=== PATIENT | male | born 1965 | race Caucasian/White ===

== ENCOUNTER 2021-02-03 14:20 | Emergency (ER) | payer OTHER, SELFPAY ==
[2021-02-03 14:40] VITALS: BP 131/91; PULSE 100; RESP 20; TEMP 36.1; O2SAT 100
--- NOTE | 2021-02-03 15:12 | ED.GENADULT ---
HPI - General Adult General Chief complaint: Extremity Injury, Upper Stated complaint: left hand thumb injury Source: patient Mode of arrival: ambulatory Limitations: no limitations History of Present Illness HPI narrative: Navin is a 55M with a PMH of recurrent boils, diabetes and a mood disorder presented to the ED with pain and swelling in the left first digit. It has been getting worse over the last week. He denies any trauma or burn to the area. He has no other concerns. He has normal strength and sensation in the finger. Related Data Allergies Allergy/AdvReac Type Severity Reaction Status Date / Time No Known Allergies Allergy Verified 02/03/21 15:33 Review of Systems Constitutional: Constitutional: Reports no additional constitutional complaints, Denies chills and Denies fever(s) Eyes: Eyes: Reports no additional eye complaints ENT: Reports system reviewed and no additional complaints, except as documented Cardiovascular: Cardiovascular: Reports no additional cardiovascular complaints Respiratory: Respiratory: Reports no additional respiratory complaints Gastrointestinal: Gastrointestinal: Reports no additional gastrointestinal complaints Genitourinary: Genitourinary: Reports no additional male genitourinary complaints Musculoskeletal: Musculoskeletal: Reports no additional musculoskeletal complaints Integumentary/Breasts: Skin/Breast: Reports as per HPI Neurologic: Reports system reviewed and no additional complaints, except as documented Psychiatric: Psychiatric: Reports no additional psychiatric complaints Endocrine: Endocrine: Reports no additional endocrine complaints Hematologic/Lymphatic: Hematologic/Lymphatic: Reports no additional hematologic/lymphatic complaints Allergic/Immunologic: Allergic/Immunologic: Reports no additional allergic/immunologic complaints [facility] Social History Social History Gender identity (if verbalized by the patient): Male Exam Const: General: no acute distress and alert Orientation/consciousness: patient oriented x3 Limitations: No altered mental status HENMT: Head: normal to inspection Eyes: Conjunctivae: conjunctivae normal Pupils: Equal, round and reactive pupils present Neck: Neck: normal visual inspection Chest: Chest palpation & inspection: normal inspection of the chest Resp: Effort & Inspection: normal respiratory effort Other: no cough Cardio: Rate: regular rate Skin: Other: Left first digit was swollen erythematous and purple, fluctuant and very TTP Neuro: General: patient oriented x3 and moves all extremities Extrem: General: normal to inspection Psych: Appearance: grossly normal Mental Status: mental status grossly normal Procedures Abscess I/D Left thumb: Date of Incision: 02/03/21 Side (if applicable): left Local Anesthetic: none (4cc of 1% lidocaine digital block) Amount of anesthesia used (mL): 4 Technique: incised with #11 blade Amount of fluid expressed (mL): 1 Irrigation: No Packing used?: none I&D Results: Pus and Blood Abcess I&D Additional Comments: Tolerated the procedure well. Discharge Plan Discharge Clinical Impression: Felon of finger of right hand Patient Disposition: Home, Self-Care Condition: Stable Instructions: Antibiotic Form Additional Instructions: Please return to the emergency department for any new, concerning, or worsening symptoms. Prescriptions: New hydrocodone-acetaminophen 5-325 mg tablet 1 tablet PO Q8H PRN (Reason: pain) Qty: 15 RF: 0 sulfamethoxazole-trimethoprim [Bactrim DS] 800-160 mg tablet 1 tablet PO Q12H Qty: 10 RF: 0 Follow-up/Referrals: UNKNOWN,DOCTOR [Primary Care Provider] -
[2021-02-03 15:33] VITALS: BP 128/88; PULSE 90; RESP 20; TEMP 36.6; O2SAT 99
== END 2021-02-03 15:34 | disposition home or self-care (01) ==
PROVIDERS: Emergency Provider Family Medicine
DX: L03.012 Cellulitis of left finger (principal)
CPT/HCPCS: 26010; 99283

== ENCOUNTER 2021-05-22 15:15 | Emergency (ER) | payer OTHER, SELFPAY ==
[2021-05-22 15:30] VITALS: BP 136/77; PULSE 107; RESP 22; TEMP 37.3; O2SAT 98
[2021-05-22 15:45] LABS: Glucose Point of Care 271 mg/dl (65-105)
--- NOTE | 2021-05-22 15:45 | ED.SKABFB ---
HPI - Skin/Abscess/Foreign Bdy General Chief complaint: Skin/Abscess/Foreign Body Stated complaint: skin rash diabetic not taking insulin Time Seen by Provider: 05/22/21 15:46 Source: patient Mode of arrival: ambulatory Limitations: no limitations History of Present Illness HPI narrative: 56-year-old man with a history of type 2 diabetes and anxiety comes in today complaining of itching to his arms and legs and ultimately all over his body that started a month and half ago after he moved into a new apartment. Patient states that initially he developed a red rash over his distal upper extremities which is friend described as hives, and shortly thereafter his hands and feet peeled. He states the apartment was dirty and unkempt however he continues to live there because prior to that he was houseless for several months. Patient is trying to reinstate his [employer] benefits and follow-up with his doctor to restart his medications. He denies new medications or exposures, in fact he has not taking his medications for well over a month because he is out of them and has been unable to follow-up with his primary care doctor. He denies chest pain, shortness breath, cough or cold symptoms, wheezing, nausea, vomiting, diarrhea, and fevers. He states he has had scabies before and states this is definitely not scabies. complaint: rash Onset (ago): week(s) (6) Tetanus up to date: unsure Location: face, chest, back, LUE, RUE, LLE and RLE Severity: severe Quality: burning and pruritic Pain Consistency: constant Relieving factors: none Exacerbating factors: none Context: none Associated symptoms: itching Treatments prior to arrival: none Related Data Home Medications Medication Instructions Recorded Confirmed buspirone 10 mg PO TID 05/22/21 05/22/21 cyclobenzaprine 10 mg PO TID 05/22/21 05/22/21 gabapentin 300 mg PO TID 05/22/21 05/22/21 insulin glargine [Lantus Solostar 25 unit SUBCUT 05/22/21 05/22/21 U-100 Insulin] metformin 1,000 mg PO BID 05/22/21 05/22/21 trazodone 100 mg PO 05/22/21 05/22/21 Allergies Allergy/AdvReac Type Severity Reaction Status Date / Time No Known Allergies Allergy Verified 02/03/21 15:33 Review of Systems Review of Systems: All systems reviewed & are unremarkable except as noted in HPI and below Constitutional: Constitutional: Denies chills and Denies fever(s) Eyes: Eyes: Denies change in vision and Denies photophobia ENT: Denies nasal congestion and Denies sore throat Cardiovascular: Cardiovascular: Denies chest pain and Denies radiating jaw, neck or arm pain Respiratory: Respiratory: Denies cough and Denies dyspnea Gastrointestinal: Gastrointestinal: Denies abdominal pain, Denies diarrhea, Denies nausea and Denies vomiting Genitourinary: Genitourinary: Denies hematuria, Denies urinary frequency and Denies urinary incontinence Musculoskeletal: Musculoskeletal: Denies back pain, Denies arthralgias and Denies joint swelling Integumentary/Breasts: Skin/Breast: Reports as per HPI, Reports pruritus, Reports erythema and Reports rash Neurologic: Denies headache(s), Denies focal weakness, Denies numbness and Denies weakness Hematologic/Lymphatic: Hematologic/Lymphatic: Denies easy bleeding and Denies easy bruising Allergic/Immunologic: Allergic/Immunologic: Denies lip swelling and Denies throat swelling PMFSH Past Medical History Medical History (Updated 05/22/21 @ 17:20 by Deangelo Ohara MD) Anxiety Traumatic injury of head Type 2 diabetes mellitus Surgical History Surgical History (Updated 05/22/21 @ 17:18 by Deangelo Ohara MD) History of surgery on arm Left after trauma Social History Social History (Updated 05/22/21 @ 17:18 by Deangelo Ohara MD) Smoking status: Current every day smoker Alcohol intake: former Substance use: current Substance use type: marijuana Living arrangements: alone Gender identity (if verbalized by the patient): Male
[2021-05-22 16:22] LABS: Basophils Absolute Auto 0.06 K/mm3 (0.00-0.10); Basophils Percent Auto 0.8 % (0.0-1.0); Eosinophils Absolute Auto 0.22 K/mm3 (0.02-0.50); Eosinophils Percent Auto 2.9 % (1.0-6.0); Hematocrit 46.5 % (40.0-54.0); Hemoglobin 16.5 g/dL (14.0-18.0); Immature Granulocyte Absolute 0.02 K/mm3 (0.00-0.00); Immature Granulocyte Percent A 0.3 % (0.0-0.0); Lymphocytes Percent Auto 21.4 % (18.0-42.0); Mean Corpuscular HGB Conc 35.5 g/dL (32.0-36.0); Mean Corpuscular Hemoglobin 29.5 pg (27.0-31.0); Mean Platelet Volume 8.9 fl (8.7-11.0); Monocytes Absolute Auto 0.56 K/mm3 (0.10-0.90); Monocytes Percent Auto 7.5 % (2.0-11.0); Neutrophils Percent Auto 67.1 % (50.0-70.0); Platelet Count Result 168 K/mm3 (150-420); Red Cell Distribution Width 12.8 % (11.6-14.4); White Blood Count 7.5 K/mm3 (4.8-10.8)
[2021-05-22 16:42] LABS: Alanine Aminotransferase 25 U/L (16-63); Albumin Level 4.2 g/dL (3.4-5.0); Alkaline Phosphatase 101 U/L (46-116); Anion Gap 9 mmol/L (8-16); Aspartate Amino Transferase 11 U/L (15-37); Bilirubin,Total 1.1 mg/dL (0.00-1.00); Blood Urea Nitrogen 7 mg/dL (7-18); Calcium 9.2 mg/dL (8.5-10.1); Carbon Dioxide 29 mmol/L (21-32); Chloride 102 mmol/L (98-108); Estimated CRCL calculation 118 ml/min; Estimated Glomerular Filt Rate > 60; Glucose 250 mg/dL (70-99); Lactate Dehydrogenase 147 U/L (85-227); Osmolality Calculated 296 mOsm/kg (285-295); Potassium 4.1 mmol/L (3.5-5.1); Sodium 140 mmol/L (136-145); Total Protein 8.2 g/dL (6.4-8.2)
[2021-05-22 16:44] LABS: Hemoglobin A1C 7.2 % (<5.7)
[2021-05-22 17:26] VITALS: BP 138/74; PULSE 89; RESP 20; TEMP 37.3; O2SAT 98
== END 2021-05-22 17:27 | disposition home or self-care (01) ==
PROVIDERS: Emergency Provider Emergency Medicine
DX: L23.9 Allergic contact dermatitis, unspecified cause (principal)
CPT/HCPCS: 36415; 80053; 82948; 83036; 83615; 85025; 99283

== ENCOUNTER 2021-07-05 16:34 | Emergency (ER) | payer OTHER, SELFPAY ==
[2021-07-05 16:35] VITALS: BP 130/87; PULSE 97; RESP 22; TEMP 36.4; O2SAT 99
--- NOTE | 2021-07-05 17:29 | ED.WOUNDLAC ---
HPI - Wound/Laceration General Chief Complaint: Wound/Laceration Stated Complaint: AMB Time Seen by Provider: 07/05/21 16:36 Source: patient, EMS and RN notes reviewed Mode of arrival: EMS Limitations: no limitations History of Present Illness Onset (ago): day(s) (1) Extremity Location: Left: foot Place: park Patient tetanus UTD: No Context: accidental Associated symptoms: none Treatments prior to arrival: other (none) Related Data Home Medications Medication Instructions Recorded Confirmed trazodone 100 mg PO HS 05/22/21 07/05/21 oxcarbazepine 300 mg PO BID 07/05/21 07/05/21 risperidone 0.5 mg PO BID 07/05/21 07/05/21 Allergies Allergy/AdvReac Type Severity Reaction Status Date / Time No Known Allergies Allergy Verified 02/03/21 15:33 Review of Systems Review of Systems: All systems reviewed & are unremarkable except as noted in HPI and below Musculoskeletal: Comments: left great toe 0.4 cm laceration medial. PMFSH Past Medical History Medical History Anxiety Traumatic injury of head Type 2 diabetes mellitus Surgical History Surgical History History of surgery on arm Left after trauma Social History Social History Smoking status: Current every day smoker Alcohol intake: former Substance use: current Substance use type: marijuana Gender identity (if verbalized by the patient): Male Exam Const: General: no acute distress and alert Nutritional Appearance: well nourished Orientation/consciousness: patient oriented x3 Limitations: no limitations HENMT: Head: normal to inspection Ears: external ears normal and TM's normal bilaterally General nose exam: Normal external nose present and Normal nares present Mouth: Yes moist mucous membranes Eyes: Conjunctivae: conjunctivae normal Pupils: Equal, round and reactive pupils present EOM: EOMs intact bilaterally Neck: Neck: normal visual inspection Chest: Chest palpation & inspection: normal inspection of the chest Resp: Effort & Inspection: normal respiratory effort Auscultation: clear to auscultation bilaterally Cardio: Rate: regular rate Rhythm: regular rhythm GI: GI Palp: Yes Soft to palpation and No Tenderness to palpation present (GI) Percussion: Yes normal to percussion Back/Spine/Pelvis: Back: no CVA tenderness Skin: General skin exam: normal color Rashes: no rashes Neuro: General: patient oriented x3 and moves all extremities Gait exam (Neuro): Normal gait present Extrem: Other: medial left great toe 0.4 cm laceration, not bleeding. Psych: Appearance: disheveled Mental Status: mental status grossly normal Affect: normal affect Attitude: cooperative Thought content: Yes Normal thought content present Course Course Emergency Course: pt was stable in the ED. For home. Reevaluation(s) Date: 07/05/21 Time: 17:37 Vital Signs Vital signs: Vital Signs Temperature 36.4 C 07/05/21 16:35 Pulse Rate 97 07/05/21 16:35 Respiratory Rate 22 H 07/05/21 16:35 Blood Pressure 130/87 07/05/21 16:35 Pulse Oximetry 99 07/05/21 16:35 Temperature 36.4 C 07/05/21 16:35 Pulse Rate 97 07/05/21 16:35 Respiratory Rate 22 H 07/05/21 16:35 Blood Pressure 130/87 07/05/21 16:35 Pulse Oximetry 99 07/05/21 16:35 Procedures Laceration left great toe 0.4 cm lac.: Date: 07/05/21 Time: 17:12 Site: lower extremity Side (If applicable): left Size (cm): 0.4 Description: irregular Depth: simple, single layer Amount of anesthesia used (mL): 0 Pre-repair: irrigated ====== Skin Level ====== Skin layer closed with: other (sterile gauze dressing.) ====== Subcutaneous Layer ====== ====== Muscle Layer ====== ====== Tendon Layer ====== Dressing: w
[2021-07-05] MEDS: TETANUS,DIPHTHERIA,AC PERTUSSIS ADULT 0.5 ML (ADACEL) IM (17:54)
[2021-07-05] MEDS: ACETAMINOPHEN 325 MG TABLET 650 MG PO (17:55)
[2021-07-05] MEDS: cefTRIAXone 1 GM VIAL IM (17:55)
[2021-07-05] MEDS: LIDOCAINE HCL 1% LOCAL INJ 20 ML VIAL (17:55)
[2021-07-05 18:35] VITALS: BP 131/69; PULSE 100; RESP 20; O2SAT 98
== END 2021-07-05 18:35 | disposition home or self-care (01) ==
PROVIDERS: Emergency Provider Emergency Medicine
DX: S91.312A Laceration without foreign body, left foot, initial encounter (principal); W45.8XXA Other foreign body or object entering through skin, initial encounter
CPT/HCPCS: 90471; 90715; 96372; 99283; A9270; J0696